=== PATIENT | female | born 1970 | race American Indian/Alaskan Native ===

== ENCOUNTER 2021-05-17 19:04 | Emergency (ER) | payer MEDICARE ==
[2021-05-17] MEDS ORDERED: ASPIRIN 325 MG TAB PO ONE (19:29)
--- NOTE | 2021-05-17 19:54 | XRay Report ---
CHEST 2 VIEWS INDICATION / CLINICAL INFORMATION: Chest pain. Blood tinged vomitus since noon today. COMPARISON: None available. FINDINGS: SUPPORT DEVICES: None. HEART / MEDIASTINUM: The heart size and pulmonary vasculature are normal. The aorta is normal in june maryann. LUNGS / PLEURA: No significant pulmonary or pleural abnormality. No pneumothorax. ADDITIONAL FINDINGS: The visualized upper abdomen is unremarkable. IMPRESSION: No acute findings. Signer Name: Fawad Crook MD Signed: 05/17/2021 7:49 PM Workstation Name: [id number]
[2021-05-17 20:18] LABS: Basophils # (Auto) 0.1 K/mm3 (0.0-0.1); Basophils % (Auto) 0.6 % (0.0-1.8); Eosinophils # (Auto) 0.2 K/mm3 (0.0-0.4); Eosinophils % (Auto) 2.1 % (0.0-4.3); Hematocrit 31.7 % (30.3-42.9); Hemoglobin 9.6 gm/dl (10.1-14.3); Lymphocytes # (Auto) 1.9 K/mm3 (1.2-5.4); Lymphocytes % (Auto) 20.3 % (13.4-35.0); Mean Corpuscular HGB Conc 30 % (30-34); Monocytes # (Auto) 0.5 K/mm3 (0.0-0.8); Monocytes % (Auto) 5.6 % (0.0-7.3); Platelet Count 300 K/mm3 (140-440); Red Blood Count 4.95 M/mm3 (3.65-5.03); Red Cell Distribution Width 19.4 % (13.2-15.2)
[2021-05-17 20:26] LABS: Mean Corpuscular Volume 64 fl (79-97)
[2021-05-17 20:31] LABS: Alanine Aminotransferase 13 units/L (7-56); Albumin 3.8 g/dL (3.9-5); Blood Urea Nitrogen 8 mg/dL (7-17); Calcium 9.2 mg/dL (8.4-10.2); Hemolysis Index 32
[2021-05-17] MEDS ORDERED: ALUM-MAG HYDROXIDE-SIMETHICONE 200-200-20MG/5ML ORAL LIQD 30 ML PO ONE (20:37)
[2021-05-17] MEDS ORDERED: DICYCLOMINE 20 MG TAB PO ONE (20:37)
[2021-05-17] MEDS ORDERED: LIDOCAINE VISCOUS 2% 15 ML ORAL LIQD PO ONE (20:37)
[2021-05-17] MEDS ORDERED: ONDANSETRON 4 MG/2 ML INJ IV ONE (20:37)
[2021-05-17] MEDS ORDERED: FAMOTIDINE 20 MG/2 ML INJ IV ONE (20:37)
--- NOTE | 2021-05-17 20:37 | Emergency Department Report ---
ED General Adult HPI - General Chief complaint: Chest Pain Stated complaint: CHEST PAIN,VOMITING BLOOD Time Seen by Provider: 05/17/21 20:15 Source: patient Mode of arrival: Ambulatory Limitations: No Limitations - History of Present Illness Initial comments: 50-year-old female patient presents to the emergency department with complaints of epigastric abdominal pain with associated nausea and vomiting starting 2 days ago. Patient states symptoms began after she consumed an alcoholic beverage containing alkaline water. States she has experienced similar symptoms with alkaline water consumption on prior occasions. Describes the pain as "raw feeling," radiating to her chest. Patient does not use steroids or NSAIDs on a chronic basis. Patient states she has experienced approximately 5 episodes of emesis today. She noticed a small amount of blood during the last 2 episodes. Denies fever, chills, shortness of breath, diaphoresis, palpitations, black/bloody stools. Denies all other complaints at this time. Severity scale (0 -10): 10 - Related Data Previous Rx's Medication Instructions Recorded Last Taken Type Famotidine [Pepcid] 20 mg PO BID 7 Days tablet 05/18/21 Unknown Rx Omeprazole 20 mg PO DAILY #14 tab. 05/18/21 Unknown Rx Sucralfate 1 gm PO QID 7 Days #1 bottle 05/18/21 Unknown Rx Allergies Allergy/AdvReac Type Severity Reaction Status Date / Time Sulfa (Sulfonamide Allergy Hives Verified 05/17/21 19:28 Antibiotics) ED Review of Systems ROS: Stated complaint: CHEST PAIN,VOMITING BLOOD Other details as noted in HPI Other: GENERAL: Negative for fever, chills, weight change, anorexia, fatigue. ENT: Negative for ear pain, difficulty hearing, sore throat, nasal congestion, epistaxis. CARDIOVASCULAR: Positive for chest pain. PULMONARY: Negative for cough, dyspnea, wheezing, orthopnea, cyanosis. GASTROINTESTINAL: Positive for abdominal pain, nausea, vomiting, hematemesis MUSCULOSKELETAL: Negative for joint pain, joint swelling, myalgias, back pain, neck pain. NEUROLOGICAL: Negative for headache, seizure, syncope, paresthesias, weakness. INTEGUMENTARY: Negative for erythema, rash, diaphoresis, laceration, ecchymosis. HEMATOLOGICAL: Negative for hemoptysis, hematemesis, hematochezia, hematuria. PSYCHIATRIC: Negative for hallucinations, suicidal ideation, homicidal ideation, anxiety, depression. ED Past Medical Hx - Past Medical History Previous Medical History?: No - Surgical History Past Surgical History?: No - Social History Smoking Status: Never Smoker Substance Use Type: None - Medications Home Medications: Home Medications Medication Instructions Recorded Confirmed Last Taken Type Famotidine [Pepcid] 20 mg PO BID 7 Days tablet 05/18/21 Unknown Rx Omeprazole 20 mg PO DAILY #14 tab 05/18/21 Unknown Rx Sucralfate 1 gm PO QID 7 Days #1 bottle 05/18/21 Unknown Rx ED Physical Exam - General Limitations: No Limitations - Other Other exam information: General: Awake and alert. No acute distress. Head: Atraumatic, normocephalic. Eyes: EOMI. Pupils are equal and round. Normal sclera and conjunctiva. ENT: Oral mucosa is moist. Normal pharyngeal exam. Neck: Supple. No lymphadenopathy. Pulmonary: No respiratory distress. Clear to auscultation bilaterally. Cardiac: Regular rate and rhythm. Pulses are palpable and equal bilaterally. No lower extremity cyanosis or edema. Skin: Warm and dry. No rashes. Abdomen: Soft, non-tender, non-protuberant. No guarding, rigidity, or rebound. Bowel sounds are normal. No organomegaly or masses noted. Back: Normal alignment. No CVA tenderness. Extremities: Symmetrical. Full range of motion intact. Neurological: Alert and oriented, appropriately interactive, no focal deficits. Psych: Cooperative. Appropriate mood and affect. Speech is evenly metered. Thoughts are logically construed. ED Course Vital Signs 05/17/21 05/18/21 19:31 01:00 Temperature 98.3 F Pulse Rate 78 65 Respiratory 18 18 Rate Blood Pressure 146/73 150/98 [Left] O2 Sat by Pulse 100 97 Oximetry ED Medical Decision Making - Lab Data Result diagrams: 05/17/21 19:32 05/17/21 19:32 - EKG Data 05/17/21 20:33 EKG shows normal sinus rhythm with a ventricular rate of 68 bpm. Normal axis. Normal OK interval. Normal QT interval. Good R wave progression. No ST segment changes. Over read by attending emergency physician, who agrees with this interpretation. - Medical Decision Making Differential diagnosis including but not limited to: acute coronary syndrome, pericarditis, pericardial effusion/cardiac tamponade, Boerhaave syndrome, Hemalatha-Hsu tear, variceal bleeding, GERD/esophagitis, peptic ulcer disease, coagulopathy On reevaluation, patient remains stable. Pain is controlled. No further vomiting in the emergency department. She is afebrile, hemodynamically stable, tolerating oral intake without difficulty. Hemoglobin is consistent with baseline; patient has a history of iron deficiency anemia. EKG without acute injury pattern. Initial and repeat troponin within normal limits. Chest x-ray is negative. History and exam findings suggest symptoms are esophageal in nature; suspect earlier bleeding may be attributable to Hemalatha-Hsu tear. No clinical indication for further diagnostic work-up on an emergent basis at this time. Patient will be discharged home with appropriate GI medications and instructed to follow-up with her primary care provider upon returning home to [place] next week. Patient expressed understanding and is agreeable to plan of care. Dietary modifications discussed. Strict return precautions provided. Repeat exam is unremarkable and benign. History, exam, diagnostic testing, and current condition do not suggest worrisome pathology to warrant further testing, continued ED treatment, admission, or surgical evaluation at this point. Given the low probability of a significant medical illness, it would be more likely to result in harm than benefit to perform further testing at this stage. Discussed findings, presumptive diagnosis, need for follow-up and specific signs/symptoms that should prompt immediate return to the emergency department. Instructions were explained in detail to the patient in addition to giving written discharge information. Patient expressed understanding and was given the opportunity to ask questions, all of which were satisfactorily answered prior to discharge home. Critical care attestation.: If time is entered above; I have spent that time in minutes in the direct care of this critically ill patient, excluding procedure time. ED Disposition Clinical Impression: Epigastric abdominal pain Disposition: DC-01 TO HOME OR SELFCARE Is pt being admited?: No Does the pt Need Aspirin: No Condition: Stable Instructions: Esophagitis Additional Instructions: Take Pepcid as directed. Take Omeprazole as directed. Take Sucralfate as directed. Avoid greasy/fatty/spicy/acidic foods and fluids which may worsen your symptoms. Avoid alcohol which may worsen your symptoms. Gradually advance diet slowly as tolerated. Do not lay flat within 3 hours of eating. Follow-up with your primary care provider this week. Call Thursday to schedule an appointment. Return to the emergency department immediately for new or worsening symptoms. Prescriptions: Omeprazole 20 mg PO DAILY #14 tab.rap. Famotidine [Pepcid] 20 mg PO BID 7 Days tablet Sucralfate 1 gm PO QID 7 Days #1 bottle Referrals: NAE EDDY MD [Primary Care Provider] - 3-5 Days Time of Disposition: 00:39 HEART Score - HEART Score History: Slightly suspicious EKG: Normal Age: 45-65 Risk factors: No known risk factors Troponin: Troponin T < 0.010 ng/mL (0.00-0.029) 05/17/21 23:00 Troponin: < normal limit HEART Score: 1 - Critical Actions Critical Actions: 0-3 pts:0.9-1.7%risk of adverse cardiac event.Candidate for discharge
[2021-05-17 20:38] LABS: BUN/Creatinine Ratio 11
[2021-05-17 21:24] LABS: INR 0.99 (0.87-1.13); Partial Thromboplastin Time 25.3 Sec. (24.2-36.6)
[2021-05-18 01:10] VITALS: BP 150/98
--- NOTE | 2021-05-20 17:46 | Electrocardiograph Report ---
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
== END 2021-05-18 01:00 | disposition home or self-care (01) ==
LOC: ED 19:04
DX: R10.13 Epigastric pain (principal); R11.2 Nausea with vomiting, unspecified; K92.0 Hematemesis; Z88.2 Allergy status to sulfonamides
CPT/HCPCS: 36415; 71046; 80053; 84484; 85025; 85610; 85730; 93005; 96374; 96375; 99284; J2405; 80320; G0480